=== PATIENT | male | born 1955 | race Caucasian/White ===

== ENCOUNTER 2022-06-25 13:41 | Inpatient (IN) | payer OTHER ==
[~2022-06-25] VITALS: Ht 213.4 cm; Wt 59.9 kg
[2022-06-25 13:49] VITALS: BP_SYST 96
[2022-06-25 14:47] LABS: BASOPHILS % (AUTO) 0.6 % (0.0-2.0); EOSINOPHILS # (AUTO) 0.1 K/uL (0.0-0.4); EOSINOPHILS % (AUTO) 0.8 % (0.0-4.0); HEMATOCRIT 30.9 % (36-54); HEMOGLOBIN 10.5 g/dL (14.0-18.0); LYMPHOCYTES # (AUTO) 0.7 K/uL (1.0-5.5); LYMPHOCYTES % (AUTO) 9.1 % (20.5-51.5); MEAN CORPUSCULAR HEMOGLOBIN 27 pg (27-31); MEAN CORPUSCULAR HGB CONC 34 % (32-36); MEAN CORPUSCULAR VOLUME 79 fL (79.0-98.0); MONOCYTES # (AUTO) 0.6 K/uL (0.0-1.0); MONOCYTES % (AUTO) 7.7 % (1.7-9.3); NEUTROPHILS % (AUTO) 81.8 % (40.0-70.0); PLATELET COUNT (AUTO) 391 K/uL (130-430); RED BLOOD CELL COUNT(AUTO) 3.93 MIL/uL (4.2-6.2); RED CELL DISTRIBUTION WIDTH 13.5 % (9.0-15.0); WHITE BLOOD COUNT (AUTO) 7.3 K/uL (4.8-10.8)
[2022-06-25 14:59] LABS: CALCIUM 8.5 mg/dL (8.4-11.0); CREATININE 1.08 mg/dL (0.55-1.30)
[2022-06-25 15:03] LABS: ALBUMIN 2.6 g/dL (3.4-4.8); TOTAL BILIRUBIN 0.3 mg/dL (0.0-1.0)
[2022-06-25] MEDS ORDERED: NACL 0.9% 1,000 ML IV ONE (15:30)
[2022-06-25] MEDS ORDERED: INSULIN REGULAR, HUMAN 100 UNITS/ML, 3 ML VIAL SUBCUT ONE (15:30)
[2022-06-25] MEDS ORDERED: metroNIDAZOLE 500 mg/NS 100 ML IV ONE (15:45)
[2022-06-25] MEDS ORDERED: VANCOMYCIN HCL 1,500 MG in NS 250 ML IV ONE (15:45)
[2022-06-25] MEDS ORDERED: traMADol HCL HCL 50 MG TABLET (ULTRAM) PO PRN (17:30)
[2022-06-25] MEDS ORDERED: NALOXONE HCL 0.4 MG/ML AMP (NARCAN) IVP PRN (17:30)
[2022-06-25] MEDS ORDERED: DEXTROSE 50% JECT 50 ML DISP.SYRIN IVP PRN ×2 (17:30→20:00)
[2022-06-25] MEDS ORDERED: TEMAZEPAM 15 MG CAPSULE PO PRN ×2 (17:30→20:00)
[2022-06-25] MEDS ORDERED: INSULIN REGULAR, HUMAN 100 UNITS/ML, 3 ML VIAL (humuLIN R) SUBCUT PRN (17:30)
[2022-06-25] MEDS ORDERED: HYDROcodone/ACETAMIN 5-325 MG TAB (NORCO/ VICODIN) PO PRN (17:30)
[2022-06-25] MEDS ORDERED: ACETAMINOPHEN 325 MG TABLET PO PRN (17:30)
[2022-06-25 17:50] VITALS: BP_SYST 129
[2022-06-25] MEDS: CLINDAMYCIN 600 MG in D5W 50 ML IV SCH ×2 (18:11→23:50)
[2022-06-25] MEDS: LACTOBACILLUS RHAMNOSUS GG 1 CAP CAPSULE PO SCH (21:55)
[2022-06-25 22:57] VITALS: BP_SYST 135
[2022-06-26 01:31] VITALS: BP_SYST 129
[2022-06-26 04:25] VITALS: BP_SYST 125
[2022-06-26] MEDS: CLINDAMYCIN 600 MG in D5W 50 ML IV SCH ×3 (05:53→18:23)
[2022-06-26] MEDS: INSULIN REGULAR, HUMAN 100 UNITS/ML, 3 ML VIAL (humuLIN R) SUBCUT PRN ×3 (06:11→22:09)
[2022-06-26 06:52] LABS: INR 1.2 (0.80-1.20); PROTHROMBIN TIME 11.8 SECS (9.5-12.5)
[2022-06-26 06:55] LABS: TOTAL IRON BIND. CAPACITY 155 ug/dL (250-450)
[2022-06-26 07:05] LABS: CALCIUM 8.3 mg/dL (8.4-11.0); CREATININE 0.92 mg/dL (0.55-1.30); FREE T4 (FREE THYROXINE) 1.4 ng/dL (0.6-1.6); THYROID STIMULATING HORMONE 0.94 uIu/mL (0.34-4.82)
[2022-06-26 07:14] LABS: BASOPHILS % (AUTO) 0.5 % (0.0-2.0); EOSINOPHILS # (AUTO) 0.1 K/uL (0.0-0.4); EOSINOPHILS % (AUTO) 0.8 % (0.0-4.0); HEMATOCRIT 29.4 % (36-54); HEMOGLOBIN 9.8 g/dL (14.0-18.0); LYMPHOCYTES # (AUTO) 0.6 K/uL (1.0-5.5); LYMPHOCYTES % (AUTO) 8.5 % (20.5-51.5); MEAN CORPUSCULAR HEMOGLOBIN 27 pg (27-31); MEAN CORPUSCULAR HGB CONC 34 % (32-36); MEAN CORPUSCULAR VOLUME 79 fL (79.0-98.0); MONOCYTES # (AUTO) 0.6 K/uL (0.0-1.0); NEUTROPHILS # (AUTO) 5.7 K/uL (1.8-7.7); NEUTROPHILS % (AUTO) 82.2 % (40.0-70.0); PLATELET COUNT (AUTO) 375 K/uL (130-430); RED CELL DISTRIBUTION WIDTH 13.5 % (9.0-15.0)
[2022-06-26 08:00] VITALS: BP_SYST 114
[2022-06-26] MEDS: LACTOBACILLUS RHAMNOSUS GG 1 CAP CAPSULE PO SCH ×2 (10:30→22:03)
[2022-06-26] MEDS ORDERED: FERROUS SULFATE 325 MG TABLET.DR PO ONE (14:30)
[2022-06-26] MEDS ORDERED: MULTIVITS,CA,MINERALS/IRON/FA 1 TABLET GT ONE (14:30)
[2022-06-26 16:00] VITALS: BP_SYST 128
[2022-06-26 21:33] VITALS: BP_SYST 128
[2022-06-26 23:55] VITALS: BP_SYST 108
[2022-06-27 01:07] VITALS: BP_SYST 133
[2022-06-27] MEDS: CLINDAMYCIN 600 MG in D5W 50 ML IV SCH ×2 (01:07→05:40)
[2022-06-27 06:11] VITALS: BP_SYST 131
[2022-06-27] MEDS: INSULIN REGULAR, HUMAN 100 UNITS/ML, 3 ML VIAL (humuLIN R) SUBCUT PRN (06:21)
[2022-06-27 08:06] LABS: FOLATE (FOLIC ACID) 12.5 ng/mL (>3.0)
[2022-06-27] MEDS ORDERED: MULTIVITS,CA,MINERALS/IRON/FA 1 TABLET GT SCH (09:00)
[2022-06-27] MEDS ORDERED: FERROUS SULFATE 325 MG TABLET.DR PO SCH (09:00)
[2022-06-29 07:55] LABS: HEMOGLOBIN A1C 8.4 % (4.8-5.6)
== END 2022-06-27 13:14 | disposition short-term general hospital (02) | DRG 638 ==
LOC: SED 13:41 → SMU 16:05
PROVIDERS: ADMIT Internal Medicine; ATTEND Internal Medicine
DX: E11.69 Type 2 diabetes mellitus with other specified complication (principal); E44.0 Moderate protein-calorie malnutrition; L02.612 Cutaneous abscess of left foot; L03.116 Cellulitis of left lower limb; M86.8X7 Other osteomyelitis, ankle and foot; Z68.1 Body mass index [BMI] 19.9 or less, adult; E11.42 Type 2 diabetes mellitus with diabetic polyneuropathy; Z20.822 Contact with and (suspected) exposure to COVID-19; Z91.14 Patient's other noncompliance with medication regimen; Z88.0 Allergy status to penicillin; Z79.899 Other long term (current) drug therapy
CPT/HCPCS: 36415; 80048; 80053; 82607; 82746; 82962; 83036; 83540; 83550; 83605; 84439; 84443; 85025; 85610-TC; 85651-TC; 85730-TC; 86140; 87040; 87070-TC; 87186-TC; 96365; 96367; 96372; 99285; J1815; J1956; J3370; J3490; J7050; J7060

== ENCOUNTER 2022-10-21 16:58 | Emergency (ER) | payer OTHER ==
[~2022-10-21] VITALS: Ht 188 cm; Wt 68.0 kg
--- NOTE | 2022-10-21 17:11 | NUR ---
PT AMBULATED INTO ED WITH A STEADY GAIT AND A SURGICAL BOOT ON AND WAS PLACED ON [facility].
--- NOTE | 2022-10-21 17:15 | NUR ---
MD SING AT BEDSIDE EVALUATING PT.
--- NOTE | 2022-10-21 17:16 | NUR ---
ASSUMED CARE OF A&OX 4 PT WITH CLEAR SPEECH, PATENT AIRWAY, AND STEADY GAIT WITH A SURGICAL SHOE ON. PT IS POST SURGICAL X 4WEEKS WITH ALL THE TOES ON LEFT FOOT AMPUTATED AND PRESENTED TO THE ED TO HAVE HIS SUTURES REMOVED.. PT HAS NO S/S OF INFECTION AND REPORTS A MILD AMOUNT OF PAIN. PT DOES NOT REQUIRE ANY ASSISTIVE DEVICES AND REPORTS THAT HE HAS MINIMAL PAIN. INCISION SITE EDGES ARE WELL APPROXIMATED AND WITHOUT DRAINAGE. PT PENDING SUTURE REMOVAL.
--- NOTE | 2022-10-21 17:22 | NUR ---
PT CAME INTO ED FOR SUTURE REMOVAL SITE WAS STERILIZED WITH BENEDINE AND SALINE MIX. SITE IS LEFT FOOT WHERE AMPUTATED TOES WERE. 10 SUTURES WERE REMOVED WITHOUT INCIDENT AND SITE WAS WRAPPED WITH ROLLER GAUZE POST REMOVAL.
--- NOTE | 2022-10-21 17:40 | NUR ---
Patient given written and verbal discharge instructions and verbalizes understanding. ER MD discussed with patient the results and treatment provided. Patient in stable condition. ID arm band removed.
== END 2022-10-21 17:38 | disposition home or self-care (01) ==
LOC: SED 16:58
DX: Z48.02 Encounter for removal of sutures (principal); E11.9 Type 2 diabetes mellitus without complications; Z88.0 Allergy status to penicillin; Z79.899 Other long term (current) drug therapy
CPT/HCPCS: 99281

== ENCOUNTER 2023-10-22 12:49 | Inpatient (IN) | payer OTHER ==
[~2023-10-22] VITALS: Ht 185.4 cm; Wt 74.8 kg
[2023-10-22 13:14] VITALS: BP_SYST 122; PULSE 62; RESP 18; TEMP 97.2; O2SAT 94
[2023-10-22 14:04] LABS: BASOPHILS % (AUTO) 0.6 % (0.0-2.0); EOSINOPHILS # (AUTO) 0.1 K/uL (0.0-0.4); EOSINOPHILS % (AUTO) 1.7 % (0.0-4.0); HEMATOCRIT 34.1 % (36-54); HEMOGLOBIN 11.6 g/dL (14.0-18.0); MEAN CORPUSCULAR HEMOGLOBIN 29 pg (27-31); MEAN CORPUSCULAR HGB CONC 34 % (32-36); MEAN CORPUSCULAR VOLUME 86 fL (79.0-98.0); MONOCYTES # (AUTO) 0.6 K/uL (0.0-1.0); MONOCYTES % (AUTO) 7.7 % (1.7-9.3); NEUTROPHILS # (AUTO) 6.3 K/uL (1.8-7.7); PLATELET COUNT (AUTO) 290 K/uL (130-430); RED BLOOD CELL COUNT(AUTO) 3.97 MIL/uL (4.2-6.2); RED CELL DISTRIBUTION WIDTH 13.1 % (9.0-15.0)
[2023-10-22 14:12] LABS: CALCIUM 8.7 mg/dL (8.4-11.0); CREATININE 1.21 mg/dL (0.55-1.30); POTASSIUM 4.6 mmol/L (3.5-5.1)
[2023-10-22 14:15] LABS: PROTHROMBIN TIME 10.3 SECS (9.5-12.5)
[2023-10-22] MEDS ORDERED: CLINDAMYCIN PHOSPHATE 300 MG/2 ML VIAL IM ONE (15:15)
[2023-10-22 15:20] LABS: ALANINE AMINOTRANSFERASE 12 U/L (12-78); ALBUMIN 3.1 g/dL (3.4-4.8); ASPARTATE AMINOTRANSFERASE < 5 U/L (10-37); BILIRUBIN,DIRECT 0.1 mg/dL (0.0-0.3); TOTAL BILIRUBIN 0.4 mg/dL (0.0-1.0); TOTAL PROTEIN, SERUM 7.1 g/dL (6.4-8.3)
[2023-10-22] MEDS: KETOROLAC TROMETHAMINE 30 MG VIAL IVP ONE (15:20)
[2023-10-22] MEDS ORDERED: CLINDAMYCIN 900 MG in D5W 100 ML IV ONE (15:30)
[2023-10-22] MEDS: CLINDAMYCIN PHOS 900 MG/ D5W 50 ML PREMIX IV ONE (15:36)
[2023-10-22] MEDS: metFORMIN HCL 500 MG TABLET PO ONE (15:37)
[2023-10-22] MEDS: PERMETHRIN 5% 60 GM CREAM.GM. TP ONE (16:00)
[2023-10-22] MEDS ORDERED: PERMETHRIN 5% 60 GM CREAM.GM. TP ONE (17:15)
[2023-10-22] MEDS ORDERED: METF-1069 PO (17:15)
[2023-10-22 22:00] VITALS: BP_SYST 130; PULSE 84; RESP 20; TEMP 96.8; O2SAT 98
[2023-10-22] MEDS ORDERED: MORPHINE 4 MG INJ. 4 MG/ML VIAL IVP PRN (23:30)
[2023-10-22] MEDS ORDERED: HYDROcodone/ACETAMIN 5-325 MG TAB (NORCO/ VICODIN) PO PRN (23:30)
[2023-10-22] MEDS ORDERED: ACETAMINOPHEN 325 MG TABLET PO PRN (23:30)
[2023-10-22] MEDS ORDERED: TEMAZEPAM 15 MG CAPSULE PO PRN (23:30)
[2023-10-22] MEDS ORDERED: ONDANSETRON HCL 4 MG/2 ML VIAL IVP PRN (23:30)
[2023-10-22] MEDS ORDERED: NALOXONE HCL 0.4 MG/ML AMP (NARCAN) IVP PRN (23:30)
[2023-10-23 00:32] VITALS: BP_SYST 129; PULSE 86; RESP 18; TEMP 96.8; O2SAT 98
[2023-10-23] MEDS: ENOXAPARIN SODIUM 40 MG/0.4 ML SYRINGE SUBCUT ONE (00:52)
[2023-10-23] MEDS: ceFAZolin SODIUM 2 GM in D5W 100 ML IV SCH (00:53)
[2023-10-23] MEDS: CEFAZOLIN 2 GM IVPB PREMIX 100 ML IV ONE (00:58)
[2023-10-23 07:25] LABS: BASOPHILS % (AUTO) 0.7 % (0.0-2.0); EOSINOPHILS # (AUTO) 0.1 K/uL (0.0-0.4); EOSINOPHILS % (AUTO) 1.7 % (0.0-4.0); HEMATOCRIT 33.7 % (36-54); HEMOGLOBIN 11.5 g/dL (14.0-18.0); LYMPHOCYTES # (AUTO) 0.8 K/uL (1.0-5.5); LYMPHOCYTES % (AUTO) 10.7 % (20.5-51.5); MEAN CORPUSCULAR HEMOGLOBIN 29 pg (27-31); MEAN CORPUSCULAR HGB CONC 34 % (32-36); MEAN CORPUSCULAR VOLUME 85 fL (79.0-98.0); MONOCYTES # (AUTO) 0.4 K/uL (0.0-1.0); MONOCYTES % (AUTO) 5.7 % (1.7-9.3); NEUTROPHILS # (AUTO) 5.8 K/uL (1.8-7.7); NEUTROPHILS % (AUTO) 81.2 % (40.0-70.0); PLATELET COUNT (AUTO) 265 K/uL (130-430); RED BLOOD CELL COUNT(AUTO) 3.96 MIL/uL (4.2-6.2); WHITE BLOOD COUNT (AUTO) 7.1 K/uL (4.8-10.8)
[2023-10-23 08:00] VITALS: O2SAT 99
[2023-10-23 08:10] LABS: ALANINE AMINOTRANSFERASE 18 U/L (12-78); ALBUMIN 2.8 g/dL (3.4-4.8); ANION GAP 11 (5-15); ASPARTATE AMINOTRANSFERASE < 5 U/L (10-37); CALCIUM 8.5 mg/dL (8.4-11.0); CARBON DIOXIDE 26 mmol/L (23-29); CHLORIDE 106 mmol/L (98-107); CHOLESTEROL 122 mg/dL (<200); CREATININE 1.23 mg/dL (0.55-1.30); GFR AFRICAN AMERICAN 75 mL/min (>90); GFR NON AFRICAN-AMERICAN 62 mL/min (>90); GLUCOSE 172 mg/dL (74-106); HDL CHOLESTEROL 38 mg/dL (>45); POTASSIUM 4.8 mmol/L (3.5-5.1); SODIUM SERUM 143 mmol/L (136-145); TOTAL BILIRUBIN 0.4 mg/dL (0.0-1.0); TOTAL PROTEIN, SERUM 6.6 g/dL (6.4-8.3); TRIGLYCERIDES 100 mg/dL (30-150); UREA NITROGEN, BLOOD 28 mg/dL (8-21)
[2023-10-23 08:34] VITALS: BP_SYST 139; PULSE 104; RESP 18; TEMP 98; O2SAT 99
[2023-10-23] MEDS: LACTOBACILLUS RHAMNOSUS GG 1 CAP CAPSULE PO SCH (09:00)
[2023-10-23 09:49] LABS: HEMOGLOBIN A1C 7.62 % (<5.7)
[2023-10-23] MEDS: CILOSTAZOL 50 MG TABLET (PLETAL) PO SCH (10:31)
[2023-10-23] MEDS: IVERMECTIN 3 MG TABLET PO ONE (10:32)
[2023-10-23 20:00] VITALS: BP_SYST 115; PULSE 88; RESP 18; TEMP 97.5; O2SAT 98
[2023-10-23] MEDS: ENOXAPARIN SODIUM 40 MG/0.4 ML SYRINGE SUBCUT SCH (20:30)
[2023-10-24] VITALS: BP_SYST 117; PULSE 95; RESP 18; TEMP 99.2; O2SAT 99
[2023-10-24 06:17] LABS: BASOPHILS % (AUTO) 0.4 % (0.0-2.0); EOSINOPHILS # (AUTO) 0.1 K/uL (0.0-0.4); EOSINOPHILS % (AUTO) 1.4 % (0.0-4.0); HEMATOCRIT 30.6 % (36-54); HEMOGLOBIN 10.7 g/dL (14.0-18.0); LYMPHOCYTES # (AUTO) 1.2 K/uL (1.0-5.5); LYMPHOCYTES % (AUTO) 17.7 % (20.5-51.5); MEAN CORPUSCULAR HEMOGLOBIN 29 pg (27-31); MEAN CORPUSCULAR HGB CONC 35 % (32-36); MEAN CORPUSCULAR VOLUME 84 fL (79.0-98.0); MONOCYTES # (AUTO) 0.6 K/uL (0.0-1.0); MONOCYTES % (AUTO) 8.5 % (1.7-9.3); NEUTROPHILS # (AUTO) 4.8 K/uL (1.8-7.7); PLATELET COUNT (AUTO) 276 K/uL (130-430); RED BLOOD CELL COUNT(AUTO) 3.65 MIL/uL (4.2-6.2); RED CELL DISTRIBUTION WIDTH 12.8 % (9.0-15.0); WHITE BLOOD COUNT (AUTO) 6.7 K/uL (4.8-10.8)
[2023-10-24 07:03] LABS: CALCIUM 8.5 mg/dL (8.4-11.0); CREATININE 1.33 mg/dL (0.55-1.30); POTASSIUM 4.1 mmol/L (3.5-5.1)
[2023-10-24 08:00] VITALS: O2SAT 99
[2023-10-24 08:48] VITALS: BP_SYST 114; PULSE 82; RESP 18; TEMP 98; O2SAT 99
[2023-10-24] MEDS ORDERED: DEXTROSE 50% JECT 50 ML DISP.SYRIN IVP PRN (17:00)
[2023-10-24] MEDS ORDERED: INSULIN REGULAR, HUMAN 100 UNITS/ML, 3 ML VIAL (humuLIN R) SUBCUT PRN (17:00)
[2023-10-24 19:00] VITALS: BP_SYST 90; PULSE 84; RESP 18; TEMP 97.1; O2SAT 97
[2023-10-24] MEDS: APIXABAN 2.5 MG TABLET PO SCH (21:06)
[2023-10-25 05:50] LABS: BASOPHILS % (AUTO) 0.7 % (0.0-2.0); EOSINOPHILS # (AUTO) 0.1 K/uL (0.0-0.4); EOSINOPHILS % (AUTO) 2.5 % (0.0-4.0); HEMATOCRIT 29.6 % (36-54); HEMOGLOBIN 10.1 g/dL (14.0-18.0); LYMPHOCYTES # (AUTO) 1.7 K/uL (1.0-5.5); LYMPHOCYTES % (AUTO) 31.2 % (20.5-51.5); MEAN CORPUSCULAR HEMOGLOBIN 29 pg (27-31); MEAN CORPUSCULAR HGB CONC 34 % (32-36); MEAN CORPUSCULAR VOLUME 85 fL (79.0-98.0); MONOCYTES # (AUTO) 0.5 K/uL (0.0-1.0); MONOCYTES % (AUTO) 8.7 % (1.7-9.3); NEUTROPHILS % (AUTO) 56.9 % (40.0-70.0); PLATELET COUNT (AUTO) 266 K/uL (130-430); RED BLOOD CELL COUNT(AUTO) 3.49 MIL/uL (4.2-6.2); RED CELL DISTRIBUTION WIDTH 12.8 % (9.0-15.0); WHITE BLOOD COUNT (AUTO) 5.3 K/uL (4.8-10.8)
[2023-10-25 06:22] LABS: CALCIUM 8.7 mg/dL (8.4-11.0); CREATININE 1.14 mg/dL (0.55-1.30); POTASSIUM 4.2 mmol/L (3.5-5.1); TOTAL BILIRUBIN 0.2 mg/dL (0.0-1.0)
[2023-10-25 07:15] LABS: ALBUMIN 2.5 g/dL (3.4-4.8); TOTAL PROTEIN, SERUM 6.2 g/dL (6.4-8.3)
[2023-10-25 08:00] VITALS: O2SAT 99
[2023-10-25 11:21] VITALS: BP_SYST 127; PULSE 92; RESP 16; TEMP 97.7; O2SAT 98
[2023-10-25 15:25] VITALS: BP_SYST 124; PULSE 70; RESP 16; TEMP 98.9; O2SAT 100
[2023-10-25 15:27] VITALS: BP_SYST 120; PULSE 98; RESP 16; TEMP 98.6; O2SAT 97
[2023-10-25] MEDS ORDERED: METF-1069 PO (16:59)
[2023-10-25] MEDS ORDERED: CILO50TA2 PO (16:59)
[2023-10-25] MEDS ORDERED: DOXY100C5 PO (16:59)
[2023-10-25] MEDS ORDERED: CEPH250C PO (16:59)
[2023-10-25] MEDS ORDERED: LACT1CAP57 PO (16:59)
[2023-10-25] MEDS ORDERED: APIX2.5T PO (17:05)
[2023-10-25 17:53] VITALS: BP_SYST 120; PULSE 98; RESP 18; TEMP 98.6; O2SAT 97
== END 2023-10-25 18:48 | disposition home health service (06) | DRG 300 ==
LOC: SED 12:49 → SMU 18:48
PROVIDERS: ADMIT Internal Medicine; ATTEND Internal Medicine
DX: E11.52 Type 2 diabetes mellitus with diabetic peripheral angiopathy with gangrene (principal); E44.0 Moderate protein-calorie malnutrition; L03.116 Cellulitis of left lower limb; I96 Gangrene, not elsewhere classified; E11.628 Type 2 diabetes mellitus with other skin complications; B86 Scabies; Z88.0 Allergy status to penicillin; Z79.899 Other long term (current) drug therapy; Z68.21 Body mass index [BMI] 21.0-21.9, adult
CPT/HCPCS: 36415; 71045; 80048; 80053; 80061; 80076; 82948; 83037; 83605; 84484; 85025; 85610; 85730; 87040; 87210; 93005; 93923; 96365; 96375; 97116-GP; 97163-GP; 99285; J0690; J1650; J1815; J1885; J3490; J7060

== ENCOUNTER 2023-12-02 14:17 | Emergency (ER) | payer OTHER ==
[~2023-12-02] VITALS: Ht 185.4 cm; Wt 74.8 kg
[~2023-12-02 14:17] MED LIST: APIX2.5T PO; CEPH250C PO; CILO50TA2 PO; DOXY100C5 PO; LACT1CAP57 PO; METF-1069 PO
[2023-12-02 14:29] VITALS: BP_SYST 180; PULSE 86; RESP 18; TEMP 98.3; O2SAT 100
[2023-12-02 15:08] LABS: BASOPHILS % (AUTO) 0.8 % (0.0-2.0); EOSINOPHILS # (AUTO) 0.6 K/uL (0.0-0.4); EOSINOPHILS % (AUTO) 10.2 % (0.0-4.0); HEMATOCRIT 37.3 % (36-54); HEMOGLOBIN 12.6 g/dL (14.0-18.0); LYMPHOCYTES # (AUTO) 1.4 K/uL (1.0-5.5); LYMPHOCYTES % (AUTO) 24.1 % (20.5-51.5); MEAN CORPUSCULAR HEMOGLOBIN 29 pg (27-31); MEAN CORPUSCULAR HGB CONC 34 % (32-36); MEAN CORPUSCULAR VOLUME 85 fL (79.0-98.0); MONOCYTES # (AUTO) 0.4 K/uL (0.0-1.0); NEUTROPHILS # (AUTO) 3.3 K/uL (1.8-7.7); NEUTROPHILS % (AUTO) 57.9 % (40.0-70.0); PLATELET COUNT (AUTO) 195 K/uL (130-430); RED BLOOD CELL COUNT(AUTO) 4.41 MIL/uL (4.2-6.2); RED CELL DISTRIBUTION WIDTH 14.3 % (9.0-15.0); WHITE BLOOD COUNT (AUTO) 5.7 K/uL (4.8-10.8)
[2023-12-02 15:11] LABS: ERYTHROCYTE SEDIMENTATION RATE 15 MM/HR (0-15)
[2023-12-02 15:15] LABS: CALCIUM 8.4 mg/dL (8.4-11.0); CREATININE 0.92 mg/dL (0.55-1.30); POTASSIUM 4.3 mmol/L (3.5-5.1)
[2023-12-02 17:19] VITALS: BP_SYST 166; PULSE 84; RESP 18; TEMP 98.3; O2SAT 100
== END 2023-12-02 17:19 | disposition home or self-care (01) ==
LOC: SED 14:17
DX: M79.672 Pain in left foot (principal); E11.9 Type 2 diabetes mellitus without complications; Z88.0 Allergy status to penicillin; Z79.899 Other long term (current) drug therapy
CPT/HCPCS: 36415; 80048; 85025; 85651; 99284